=== PATIENT | female | born 1950 | race Caucasian/White ===

== ENCOUNTER → 2017-04-17 | Day surgery (SDC) | payer MEDICAID ==
[~2017-04-17] VITALS: Ht 154.9 cm; Wt 65.0 kg
[~2017-04-17] MED LIST: BUPR100 PO; DARU600T PO; EMTR1TAB3 PO; ETRA100T PO; GABA-531 PO; HYDR12.530 PO; LIDOCAINE HCL/PF 2% 5 ML VIAL INJ ONE; LISI-618 PO; METF500T4 PO; OMEP10SU2 PO; PIOG15TA6 PO; PREM625 PO; PROPOFOL 1% 20 ML VIAL IVP ONE; RITO100T PO; SERT100T PO; SODIUM CHLORIDE 0.9% 1,000 ML IV ONE; VALG450T13 PO; ZOLP12.52 PO; [UNRECOGNIZED DRUG - CODE] PO
== END | disposition home or self-care (01) ==
LOC: SURGERY 08:05
PROVIDERS: ATTEND Internal Medicine Gastroenterology
DX: D12.2 Benign neoplasm of ascending colon (principal); I10 Essential (primary) hypertension; E11.9 Type 2 diabetes mellitus without complications; M19.90 Unspecified osteoarthritis, unspecified site; B20 Human immunodeficiency virus [HIV] disease; Z79.84 Long term (current) use of oral hypoglycemic drugs; Z79.899 Other long term (current) drug therapy; Z90.49 Acquired absence of other specified parts of digestive tract; Z90.710 Acquired absence of both cervix and uterus
CPT/HCPCS: 45385; 88305; C1769; J2704; J3490; J7030